=== PATIENT | male | born 1975 | race African-American/Black ===

== ENCOUNTER 2020-10-15 11:01 | Day surgery (SDC) | payer OTHER ==
[2020-10-15] MEDS ORDERED: NA CHLORIDE 0.9% 500 ML ONE (11:47)
[2020-10-15] MEDS ORDERED: CEFAZOLIN/SWI 1gm 1 GM/10 ML SYR ONE (11:47)
[2020-10-15] MEDS ORDERED: propofoL 200 MG/20 ML VIAL IV ONE (12:39)
[2020-10-15] MEDS ORDERED: LIDOCAINE 1% MPF 5 ML VIAL ONE (12:39)
[2020-10-15] MEDS ORDERED: MIDAZOLAM HCL 2 MG/2 ML INJ ONE (12:39)
[2020-10-15] MEDS ORDERED: FENTANYL CITR 100 MCG/2 ML ONE (12:39)
[2020-10-15] MEDS ORDERED: ONDANSETRON 4 MG/2 ML VIAL ONE (14:01)
[2020-10-15] MEDS: MORPHINE 4 MG/ML SYR ONE ×2 (14:05→14:15)
[2020-10-15] MEDS ORDERED: CODEINE 30MG/APAP 300MG TAB ONE (15:02)
[2020-10-15 15:18] VITALS: O2SAT 100
[2020-10-15 15:19] VITALS: BP 147/92; TEMP 96.7
--- NOTE | 2020-10-15 20:27 | OP ---
Date of Procedure: 10/15/2020 Surgeon: Tarun Torres MD Preoperative Diagnosis: Infected left hand. Postoperative Diagnosis: Infected left hand. Procedure: Debridement of skin and subcutaneous tissue, incision and drainage of the index, middle _ space. Anesthesia: General. Operative Note: After satisfactory induction of general anesthesia, left arm was prepped with Betadi ne scrub, Betadine paint, dry sterile drapes were applied in usual manner. Elliptical incision was m vasyl over dorsal laceration. Then dissection was proceeded down. No pus was encountered. The hand w as turned over. Then incision was made index and middle. There was fluid present. Cultu res were taken. No aries pus. The wounds were then jet lavage irrigated with 3 L of dilute Betadine solution and hemostats were used to connect the 2 wounds, and the Browning drain was placed between a nd tied to itself. Dressed with Kerlix. The patient tolerated procedure well, returned to Recovery. SILVIA/CESAR Voice ID: [id number] Report ID: [id number]
== END 2020-10-15 15:16 | disposition home or self-care (01) ==
LOC: OR 11:01
PROVIDERS: ATTEND Specialist
PROC: 0H9GXZZ Drainage of Left Hand Skin, External Approach (ICD-10-PCS; 2020-10-15)
PROC: 0H9 Skin and Breast, Drainage (ICD-10-PCS; 2020-10-15)
PROC: 0JDK0ZZ Extraction of Left Hand Subcutaneous Tissue and Fascia, Open Approach (ICD-10-PCS; principal; 2020-10-15 12:00)
DX: L08.89 Other specified local infections of the skin and subcutaneous tissue (principal); L85.9 Epidermal thickening, unspecified
CPT/HCPCS: 87070; 87205 ×2; 82947; 88304; 87075; 11000; 10140; J2704; J2250; J3010; J0690; J7040; J2405; 88302